=== PATIENT | male | born 1975 | race Caucasian/White ===

== ENCOUNTER 2019-11-08 15:41 | Emergency (ER) | payer MEDICAID ==
[~2019-11-08] VITALS: Ht 185.4 cm; Wt 145.4 kg
[2019-11-08] MEDS ORDERED: epiNEPHrine 1 mg/ml inj IM STA (15:47)
[2019-11-08] MEDS ORDERED: methylPREDNISolone sod succ 125mg/2ml vial IV ONE (15:50)
[2019-11-08] MEDS ORDERED: famotidine/PF 10 mg/ml inj IV ONE (15:50)
[2019-11-08] MEDS ORDERED: diphenhydrAMINE 50 mg/ml inj IV ONE (15:50)
[2019-11-08] MEDS ORDERED: ipratropium/albuterol 3ml nebule NEB ONE (15:50)
--- NOTE | 2019-11-08 15:56 | NUR ---
rt at bedside
[2019-11-08] MEDS ORDERED: PRED20TA PO (18:15)
[2019-11-08 18:27] VITALS: BP 119/70
== END 2019-11-08 18:30 | disposition home or self-care (01) ==
LOC: ER 15:42
DX: T78.3XXA Angioneurotic edema, initial encounter (principal); T78.40XA Allergy, unspecified, initial encounter; J45.909 Unspecified asthma, uncomplicated; Z79.899 Other long term (current) drug therapy
CPT/HCPCS: 93005; 94640; 96372; 96374; 96375; 99285; J0171; J1200; J2930; J3490; 94760